=== PATIENT | female | born 1980 | race Caucasian/White ===

== ENCOUNTER 2021-10-20 14:52 | Outpatient (CLI) | payer OTHER | END 2021-10-20 14:53 | disposition home or self-care (01) | LOC: NM 14:52 → BICRAD 14:53 | PROVIDERS: ATTEND Internal Medicine | DX: M54.16 Radiculopathy, lumbar region (principal) | CPT/HCPCS: 72100 ==

== ENCOUNTER 2022-03-03 09:47 | Outpatient (CLI) | payer OTHER ==
[2022-03-03 11:30] LABS: Hemoglobin 13.8 g/dL (12.0-15.5); Mean Corpuscular HGB CONC 34.7 g/dL (32.0-36.0); Mean Corpuscular Hemoglobin 30.5 pg (27.0-33.0); Mean Corpuscular Volume 87.9 fl (81.6-98.3); Mean Platelet Volume 10.4 fl (7.4-10.4); Platelet Count 244 10x3/uL (150-450); RBC Distribution Width 11.7 % (11.5-14.5); Red Blood Cell (RBC) Count 4.53 10x6/uL (3.90-5.03); White Blood Cell (WBC) Count 4.7 10x3/uL (3.5-10.5)
[2022-03-03 12:33] LABS: Anion Gap 13 mmol/L (10-20); BUN (Urea Nitrogen) 14 mg/dL (7.0-18.7); Calc. Creatinine Clearance 0 mL/min (70-130); Calcium 9.4 mg/dL (7.8-10.44); Carbon Dioxide 26 mmol/L (22-29); Chloride 105 mmol/L (98-107); Estimated GFR 92; Glucose 82 mg/dL (70-105); Potassium 4.4 mmol/L (3.5-5.1); Sodium 140 mmol/L (136-145)
== END 2022-03-03 09:48 | disposition home or self-care (01) ==
LOC: LABBT 09:47
PROVIDERS: ATTEND Neurological Surgery
DX: Z01.818 Encounter for other preprocedural examination (principal); M54.16 Radiculopathy, lumbar region
CPT/HCPCS: 80048; 85027; 93005; 93010

== ENCOUNTER 2022-08-05 07:35 | Outpatient (CLI) | payer OTHER | END 2022-08-05 07:36 | disposition home or self-care (01) | LOC: SCSMRI 07:35 | DX: M51.17 Intervertebral disc disorders with radiculopathy, lumbosacral region (principal) | CPT/HCPCS: 72148 ==